=== PATIENT | male | born 1940 | race African-American/Black ===

== ENCOUNTER 2025-05-11 08:37 | Inpatient (IN) | payer OTHER ==
[~2025-05-11] VITALS: Ht 170.2 cm; Wt 55.8 kg
[2025-05-11 08:42] VITALS: O2SAT 96
[2025-05-11] MEDS: CEFTRIAXONE 1GM/50ML 50 ML IV ONE (09:47)
[2025-05-11] MEDS: AZITHROMYCIN 500MG/250ML 250 ML IV ONE (10:06)
[2025-05-11 10:08] LABS: BASOPHILS % 0.3 % (0.0-2.0); EOSINOPHILS % 0.2 % (0.0-5.0); HEMATOCRIT. 26.7 % (42.0-52.0); HEMOGLOBIN. 8.8 g/dL (14.0-18.0); LYMPHOCYTES % 9.8 % (20.0-50.0); MEAN PLATELET VOLUME 9.3 fl (7.4-10.4); MONOCYTES % 5.5 % (2.0-8.0); NEUTROPHILS % 84.2 % (40.0-76.0); PLATELET 186 x1000/uL (130-400); RED BLOOD CELL COUNT 2.91 mill/uL (4.7-6.1); RED CELL DISTRIBUTION WIDTH 16.4 % (11.6-14.6)
[2025-05-11 10:20] LABS: INR 1.2
[2025-05-11 10:26] LABS: CREATININE 2.2 mg/dL (0.6-1.3); UREA NITROGEN BLOOD 62 mg/dL (9-23)
[2025-05-11 10:28] LABS: ASPARTATE AMINOTRANSFERASE 31 IU/L (<34); BILIRUBIN DIRECT 0.4 mg/dL (<=3.0); BILIRUBIN TOTAL 1.0 mg/dL (0.1-1.0); PROTEIN TOTAL 6.2 g/dL (6.0-8.3)
[2025-05-11 10:39] LABS: TROPONIN I HIGH SENSITIVITY 74 ng/L (3.0-53)
[2025-05-11] MEDS: FUROSEMIDE 40MG/4ML VIAL IVP ONE (10:53)
[2025-05-11] MEDS: ASPIRIN 325MG EC TABLET PO ONE (11:27)
[2025-05-11 11:30] LABS: INFLUENZA TYPE A Presumptive Negative (Pres. Neg.); INFLUENZA TYPE B Presumptive Negative (Pres. Neg.)
[2025-05-11 11:31] LABS: RESPIRATORY SYNCYTIAL VIRUS Not Detected (Not Detectd)
[2025-05-11] MEDS ORDERED: ZOLPIDEM TARTRATE 5MG TABLET PO PRN (13:00)
[2025-05-11] MEDS ORDERED: ONDANSETRON HCL 4MG/2ML INJ IV PRN (13:00)
[2025-05-11] MEDS ORDERED: HYDROCODONE/ACETAMINOPHEN 5/325MG TABLET PO PRN (13:00)
[2025-05-11] MEDS ORDERED: MAGNESIUM/ALUMINUM HYDROXIDE/SIMETHICONE 30ML UDC PO PRN (13:00)
[2025-05-11] MEDS ORDERED: NALOXONE HCL 0.4MG/ML VIAL IV PRN (13:00)
[2025-05-11] MEDS ORDERED: CLONIDINE 0.1MG TABLET PO PRN (13:00)
[2025-05-11] MEDS ORDERED: ACETAMINOPHEN 325MG TABLET PO PRN (13:00)
[2025-05-11] MEDS ORDERED: ENOXAPARIN 30MG/0.3ML SYR SUBCUT SCH (14:00)
[2025-05-11 16:08] LABS: *AMPHETAMINES SCREEN URINE NEGATIVE (NEGATIVE); *BENZODIAZEPINES SCREEN URINE NEGATIVE (NEGATIVE)
[2025-05-11 16:09] LABS: *BARBITURATES SCREEN URINE NEGATIVE (NEGATIVE); *COCAINE SCREEN URINE NEGATIVE (NEGATIVE); CANNABINOID URINE SCREEN PRESUMPTIVE POSITIVE (NEGATIVE); ECSTASY MDMA SCREEN URINE NEGATIVE (NEGATIVE); METHADONE URINE SCREEN NEGATIVE (NEGATIVE); OPIATES URINE SCREEN NEGATIVE (NEGATIVE); PHENCYCLIDINE URINE SCREEN NEGATIVE (NEGATIVE)
[2025-05-11 16:34] LABS: GLUCOSE URINE NEGATIVE (NEGATIVE); KETONES URINE NEGATIVE (NEGATIVE); LEUKOCYTE ESTERASE URINE TRACE (NEGATIVE); NITRITE URINE NEGATIVE (NEGATIVE); OCCULT BLOOD URINE NEGATIVE (NEGATIVE); PH URINE 5.0 (4.5-8.0); PROTEIN URINE TRACE (NEGATIVE); SPECIFIC GRAVITY URINE 1.011 (1.005-1.030); UROBILINOGEN URINE 0.2 E.U./dL (0.2-1.0)
[2025-05-11 16:42] LABS: COLOR URINE STRAW (YELLOW)
[2025-05-11 16:43] LABS: CLARITY URINE SL HAZY (CLEAR)
[2025-05-11 16:46] LABS: BACTERIA URINE TRACE; RBC URINE NONE SEEN /hpf (0-2); SQUAMOUS EPITHELIAL CELL URINE FEW /lpf (RARE/1+); WBC URINE 0-2 /hpf (0-2)
[2025-05-11 16:47] LABS: HYALINE CASTS URINE 0-5 /lpf; MUCUS URINE TRACE /lpf (NONE/TRACE)
[2025-05-11 17:43] LABS: TROPONIN I HIGH SENSITIVITY 74 ng/L (3.0-53)
[2025-05-11 18:40] VITALS: BP 124/78; PULSE 94; RESP 20; TEMP 36.8; O2SAT 100
[2025-05-11 20:00] VITALS: BP_SYST 111; BP_SYST 124; BP_DIAS 78; PULSE 90; PULSE 94; RESP 20; TEMP 36.3; TEMP 36.8072; O2SAT 100
[2025-05-11 20:45] VITALS: BP 120/60; PULSE 73; RESP 12; TEMP 36.7; O2SAT 99
[2025-05-11] MEDS: ATORVASTATIN CALCIUM 40MG TABLET PO SCH (22:14)
[2025-05-11] MEDS: FUROSEMIDE 40MG/4ML VIAL IVP SCH (22:14)
[2025-05-11] MEDS: ENOXAPARIN 30MG/0.3ML SYR SUBCUT SCH (22:14)
[2025-05-11 23:24] LABS: TROPONIN I HIGH SENSITIVITY 79 ng/L (3.0-53)
[2025-05-12 00:35] VITALS: BP_SYST 117; BP_SYST 156; BP_DIAS 68; BP_DIAS 73; PULSE 72; PULSE 87; RESP 16; RESP 18; TEMP 36.2; TEMP 36.9; O2SAT 99
[2025-05-12 04:03] VITALS: BP_SYST 114; BP_SYST 135; BP_DIAS 70; BP_DIAS 71; PULSE 73; PULSE 78; RESP 14; RESP 17; TEMP 37.1; O2SAT 100; O2SAT 96
[2025-05-12] MEDS ORDERED: ATOR40TA70 MT (06:41)
[2025-05-12] MEDS ORDERED: TERA5CAP4 MT (06:41)
[2025-05-12 07:48] LABS: CREATININE 2.3 mg/dL (0.6-1.3)
[2025-05-12 07:49] LABS: UREA NITROGEN BLOOD 69.0 mg/dL (9-23)
[2025-05-12 07:50] LABS: BASOPHILS % 0.3 % (0.0-2.0); EOSINOPHILS % 0.3 % (0.0-5.0); HEMATOCRIT. 27.3 % (42.0-52.0); HEMOGLOBIN. 9.0 g/dL (14.0-18.0); LYMPHOCYTES % 12.2 % (20.0-50.0); MEAN PLATELET VOLUME 9.6 fl (7.4-10.4); MONOCYTES % 7.1 % (2.0-8.0); NEUTROPHILS % 80.1 % (40.0-76.0); PLATELET 182 x1000/uL (130-400); RED BLOOD CELL COUNT 3.01 mill/uL (4.7-6.1); RED CELL DISTRIBUTION WIDTH 16.3 % (11.6-14.6)
[2025-05-12] MEDS ORDERED: CEFTRIAXONE 1GM/50ML 50 ML IV SCH (09:00)
[2025-05-12] MEDS: PANTOPRAZOLE SODIUM 40 MG/VIAL IV SCH (09:03)
[2025-05-12] MEDS: ASPIRIN 81MG TABLET PO SCH (09:04)
[2025-05-12] MEDS ORDERED: AZITHROMYCIN 500MG/250ML 250 ML IV SCH (10:00)
[2025-05-12] MEDS: CEFTRIAXONE 1GM/50ML 50 ML IV SCH (11:00)
[2025-05-12 12:00] VITALS: BP 111/64; PULSE 88; RESP 17; TEMP 36.9; O2SAT 100
[2025-05-12] MEDS: AZITHROMYCIN 500MG/250ML 250 ML IV SCH (12:21)
[2025-05-12] MEDS ORDERED: CEFT1FRO5 IV (13:37)
[2025-05-12] MEDS ORDERED: FURO10VI3 IVP (13:37)
[2025-05-12] MEDS ORDERED: ASPI-1160 PO (13:37)
[2025-05-12] MEDS ORDERED: LIP40 PO (13:37)
[2025-05-12 16:00] VITALS: BP 105/63; PULSE 97; RESP 17; TEMP 36.1; O2SAT 97
[2025-05-12 18:08] VITALS: BP 110/62; PULSE 89; RESP 18; TEMP 98
== END 2025-05-12 19:30 | disposition short-term general hospital (02) | DRG 291 ==
LOC: ER 08:37 → EDBEDREQTM 12:37 → EDBEDREQ 12:38 → ENRESERV 17:25 → 7WST 18:15
PROVIDERS: ADMIT Internal Medicine; ATTEND Internal Medicine
DX: I13.0 Hypertensive heart and chronic kidney disease with heart failure and stage 1 through stage 4 chronic kidney disease, or unspecified chronic kidney disease (principal); J96.91 Respiratory failure, unspecified with hypoxia; E87.20 Acidosis, unspecified; E83.41 Hypermagnesemia; D64.9 Anemia, unspecified; E11.22 Type 2 diabetes mellitus with diabetic chronic kidney disease; N17.9 Acute kidney failure, unspecified; I50.9 Heart failure, unspecified; N18.9 Chronic kidney disease, unspecified; Z20.822 Contact with and (suspected) exposure to COVID-19; Z79.899 Other long term (current) drug therapy
CPT/HCPCS: 36415; 71045; 76770; 80048; 80076; 80305; 80320; 81003; 82962; 83605; 83735; 83880; 84145; 84443; 84484; 85014; 85018; 85025; 85379; 87420; 87426; 87804; 93005; 93306; 93970; 96365; 96367; 96375; 99291; J0456; J0696; J1650; J1938; J2470; G0480